=== PATIENT | male | born 1960 | race Caucasian/White ===

== ENCOUNTER 2023-11-06 09:48 | Outpatient (CLI) | payer BC, SELFPAY ==
[2023-11-06 13:31] LABS: Hematocrit 43.8 % (42.0-52.0); Hemoglobin 14.9 g/dL (14.0-18.0); Mean Corpuscular Hemoglobin 32.7 pg (26-34); Mean Corpuscular Volume 96.1 fl (80-100); Mean Platelet Volume 11.8 fl (7.4-10.4); Platelet Count Result 188 k/mm3 (150-375); Red Blood Count 4.56 M/mm3 (4.6-6.20); White Blood Count 6.9 K/mm3 (4.5-10.0)
[2023-11-06 14:31] LABS: Alanine Aminotransferase 42 U/L (6-50); Albumin Level 4.4 g/dL (3.5-5.1); Alkaline Phosphatase 77 U/L (38-126); Anion Gap 7 mmol/L (4-12); Aspartate Amino Transferase 43 U/L (17-59); Bilirubin,Total 0.7 mg/dL (0.2-1.3); Blood Urea Nitrogen 19 mg/dL (9-20); Carbon Dioxide 29 mmol/L (22-30); Chloride 98 mmol/L (98-107); Cholesterol 131 mg/dL (0-200); Estimated Glomerular Filt Rate > 60; Glucose 119 mg/dL (65-110); HDL Direct 47 mg/dL; Potassium 4.5 mmol/L (3.4-5.0); Sodium 134 mmol/L (137-145); Triglycerides 61 mg/dL (<150)
[2023-11-06 14:42] LABS: LDL Cholesterol Direct 63 mg/dL
[2023-11-10 12:59] LABS: Vitamin D 1,25 (OH)2 Total 29 pg/mL (18-72); Vitamin D2 1,25 (OH)2 <8 pg/mL; Vitamin D3 1,25 (OH)2 29 pg/mL
== END 2023-11-06 09:49 | disposition home or self-care (01) ==
LOC: ANHGOSHLAB 09:49
PROVIDERS: PCP Family Medicine; Visit Provider Family Medicine
DX: E55.9 Vitamin D deficiency, unspecified (principal); E66.9 Obesity, unspecified; I10 Essential (primary) hypertension; Z79.899 Other long term (current) drug therapy
CPT/HCPCS: 36415; 80053; 80061; 82652; 84443; 85027

== ENCOUNTER 2023-11-06 10:12 | Outpatient (CLI) | payer BC, SELFPAY ==
--- NOTE | ~2023-11-06 | XR_ITS ---
XR ankle LT min 3V Ordering provider: Stacia Lemos DO History: . No recent injury pain anterior and medial side, sx 28 yr ago . Comparison: None. FINDINGS: BONES: No acute fracture or dislocation. Postoperative changes in the lower tibia. JOINT SPACES: Narrowing of the ankle joint. SOFT TISSUES: Normal. IMPRESSION: No acute osseous abnormality left ankle. Postoperative changes in the distal tibia. Severe narrowing of the ankle joint. Reviewed, dictated and finalized at location A.
== END 2023-11-06 10:13 | disposition home or self-care (01) ==
PROVIDERS: PCP Family Medicine; Visit Provider Family Medicine
DX: M19.072 Primary osteoarthritis, left ankle and foot (principal); M25.872 Other specified joint disorders, left ankle and foot
CPT/HCPCS: 73610

== ENCOUNTER 2024-03-13 09:33 | Outpatient (CLI) | payer BC, SELFPAY ==
--- OUTSIDE RECORDS SUMMARY | 2024-03-13 10:02 | XMS_ITS | Clinical Summary ---
Author Organization [facility] Address [address] [address] Phone Care Team Providers Care Mdm Developer Name Role Phone Feng Lynn MD Primary Care Provide r Loli Finn NP Unavailable [phone] Chay Lerma MD Unavailable [phone] Allergies No known active allergies Medications atorvastatin (LIPITOR) 10 mg tablet TAKE ONE TABLET BY MOUTH EVERY DAY 90 tablet 3 11/08/2022 Active lisinopriL (PRINIVIL,ZESTRI L) 30 mg tablet Take 1 tablet (30 mg total) by mouth daily 90 tablet 06/19/2023 Active Active Problems Problem Noted Date Diagnosed Date Encounter for screening colonoscopy 12/07/2020 Overview (12/07/2020): Added automatically from request for surgery [id number] Risk for coronary artery dis ease between 10% and 20% in next 10 years 07/25/2019 Overview (07/25/2019): The 10-year ASCVD risk score (Theo SARAH Jr., et al., 2013) is: 16.6% Values used to calculate the score: Age: 58 years Sex: Male Is Non- : No Diabetic: No Tobacco smoker: No Systolic Blood Pressure: 181 mmHg Is BP treated: Yes HDL Cholesterol: 45 mg/dL Total Cholesterol: 201 mg/dL Transitional cell carcinoma, bladder 12/30/2018 Hypertension 06/28/2013 Overview (05/18/2016): HYPERTENSION NOS Resolved Problems Problem Noted Date Diagnosed Date Resolved Date Gross hematuria 12/03/2018 07/25/2019 Overview (12/16/2018): Work-up by Urology pending Plan for urine cytology, CT Urogram and Cystoscopy Vitamin D deficiency 06/28/2013 018 Overview (05/17/2016): VITAMIN D DEFICIENCY NOS Adiposity 06/28/2013 11/13/2017 Overview (05/19/2016): OBESITY NOS Immunizations Name Administration Dates Next Due Influenza, Quadrivalent, Spl it, Preservative Free, Intramuscular 01/12/2020 Influenza, Trivalent, Preser vative Free, Intramuscular 10/29/2014 Influenza, Unspecified 11/12/2020(Deferr ed: Patient Refused),07/15/2019(Deferred: Patient Refused) Pfizer SARS-CoV-2 Monovalent Vaccination (12+ Yrs) PURPLE 05/01/2020,04/10/2020 Tdap 06/23/2020 ZOSTER Recombinant 06/23/2020,01/12/2020 Surgical History Surgery Date Site/Laterality Comments ANKLE SURGERY Left TRANSURETHRAL RESECTION OF BLADDER TUMOR 12/24/2018 FRACTURE SURGERY ankle surgery 20 years ago BLADDER SURGERY over last 2 years - cancer Medical History Medical History Date Comments Adiposity Obesity Vitamin D deficiency 06/28/2013 VITAMIN D D EFICIENCY NOS Hematuria Bladder tumor Depression Gross hematuria 12/03/2018 Work-up by Urolo gy pending Plan for urine cytology, CT Urogram and Cystoscopy Cancer (CMS/HCC) (HCC) Bladder Cancer Hypertension taking medication now Sleep apnea Family History Medical History Relation Name Comments Kidney failure Father Renal failure ; Arthritis Mother Pam Woods Other Mother Pam Woods Alive and well; Cancer Sister Yadira Woods Relation Name Status Comments Father Mother Pam Woods Alive Sister Yadira Woods Social History Tobacco Use Types Packs/Day Years Used Date Smoking Tobacco: Former Cigarettes Cigars Smokeless Tobacco: Never Tobacco Cessation:Ready to Q uit: Yes; Counseling Given: Yes Comments:smokes 1 cigar Alcohol Use Standard Drinks/Week Comments Yes 8 (1 standard drink = 0.6 oz pure alcohol) depends on the events of the week AUDIT-C Answer Date Recorded Q1: How often do you have a drink containing alc ohol? 2-4 times a month 12/22/2020 Q2: How many drinks containi ng alcohol do you have on a typical day when you are drinking? 5 or 6 12/22/2020 Q3: How often do you have si x or more drinks on one occasion? Weekly 12/22/2020 PHQ-2 Answer Date Recorded PHQ-2 Total Score (If total score is 3 or more points, staff should administer the PHQ-9) 0 10/04/2021 Sex and Gender Information Value Date Recorded Sex Assigned at Not on file Legal Sex Male 6:58 PM CUSTOMER ADVOCATE Gender Identity Male 12/23/2020 10:47 AM CUSTOMER ADVOCATE Sexual Orientation Straight 12/23/2020 10 :46 AM CUSTOMER ADVOCATE Obstetrics History Last Filed Vital Signs Vital Sign Reading Time Taken Comments Blood Pressure 175/116 10/04/2021 1:16 PM CDT Pulse 80 10/04/2021 1:16 PM CDT Temperature 36.6 ??C (97.9 ??F) 06/27/2021 8:33 AM CD T Respiratory Rate 15 12/22/2020 11:50 AM CUSTOMER ADVOCATE Oxygen Saturation 100% 12/22/2020 11:50 AM CUSTOMER ADVOCATE Inhaled Oxygen Concentration - - Weight 134.7 kg (297 lb) 10/04/2021 1:16 PM CDT Height 182.9 cm (6') 10/04/2021 1:16 PM CDT Body Mass Index 40.28 10/04/2021 1:16 PM CDT Plan of Treatment Health Maintenance Due Date Last Done Comments Hepatitis B Screening 1978 Depression Screening 10/04/2022 10/04/2021, 03/22/2021, 06/23/2020, Additional history exists Regular Well Visit/Exam 18-64 10/04/2022 10/04/2021, 06/23/2020, 03/04/2019, Additional history exists Prostate Cancer Screening-PSA 10/07/2023 10/06/2021, 06/23/2020, 12/02/2018 Covid-19 Vaccine ( season) 2023 06/15/2021, 05/01/2020, 04/10/2020 Influenza Vaccine (#1) 2023 01/12/2020, 2014 Colon Cancer Screening-Colonoscopy 12/22/2025 12/22/2020 DTaP/Tdap/Td Vaccine (2 - Td or Tdap) 06/23/2030 06/23/2020 Hepatitis C Screening Completed 06/23/2020 Zoster Vaccine Completed 06/23/2020, 01/12/2020 Colon Cancer Screening-CT Colonography Discontinued 12/22/2020 Colon Cancer Screening-DNA Stool Discontinued 12/22/2020 Colon Cancer Screening-FIT Discontinued 12/22/2020 Colon Cancer Screening-Sigmoidoscopy Discontinued 12/22/2020 Pneumococcal vaccine <65 Aged Out No longer eligible based on patient's age to complete this topic Procedures Procedure Name Priority Date/Time Associated Diagnosis Comments PSA SCREEN Routine 10/06/2021 10:29 AM CDT Annual physical exam COLONOSCOPY 12/22/2020 10:49 AM CUSTOMER ADVOCATE HEPATITIS C ANTIBODY Routine 06/23/2020 9:14 AM CDT Need for hepatitis C screening test from Last 3 Months or Most Recently Relevant to Health Maintenance Results * PSA screen (10/06/2021 10:29 AM CDT) PSA-Total 0.31 <=5.40 ng/mL [facility] Comment: Interpretive Data ?AGE ? SEX ?REFERENCE INTERVAL 0 minutes-150 years ?Female ?None 0 minutes-49 years ? Male ?None ? 50-59 years ? Male ?0-3.90 ? 60-69 years ? Male ?0-5.40 ? 70-79 years ? Male ?0-6.20 ? 80-150 years ?Male ?0-6.20 The Dylon PSA Total assay procedure was used. Results from different manufacturers or methods may not be comparable. Serial testing should be performed using the same method. Current interpretive data last revised 21. Blood 10/06/2021 10:2 9 AM CDT 10/06/2021 12:51 PM CDT us Feng Lynn MD LAB BLOOD ORDERABLES Final Result [facility] [id number] [facility] Department of Laboratories [place] [id number] * COLONOSCOPY (12/22/2020 10:49 AM CUSTOMER ADVOCATE) Anatomical Region Laterality Modality Other Narrative Procedure Note Kendrick Jack MD - 12/22/2020 10:49 AM CST [facility] Endoscopy Lab Patient Name: Louis Woods Procedure Date: 12/22/2020 10:49AM Date of : 1960 Admit Type: Outpatient Age: 60 Gender: Male Note Status: Finalized Attending MD: Kendrick Jack M.D. Procedure Date: 12/22/2020 Procedure: Colonoscopy Indications: Screening for colorectal malignant neoplasm, Thisis the patient's first colonoscopy Providers: Kendrick Jack M.D., Jaswant Camacho CRNA (Anesthesia Staff), Hemalatha Mart RN Referring MD: Feng Lynn M.D. Medicines: Monitored Anesthesia Care Complications: No immediate complications. Estimated Blood Loss: Estimated blood loss: none. Procedure: Pre-Anesthesia Assessment: - Airway Examination: normal oropharyngeal airwayand neck mobility. - Respiratory Examination: clear to auscultation. - ASA Grade Assessment: III - A patient with severe systemic disease. - After reviewing the risks and benefits, thepatient was deemed in satisfactory condition to undergo the procedure. - The risks and benefits of the procedure and the sedation options and risks were discussed with the patient. All questions were answered and informed consent was obtained. After I obtained informed consent, the scope was passed under direct vision. Throughout theprocedure, the patient's blood pressure, pulse, and oxygen saturations were monitored continuously. The scopewas passed under direct vision. The Colonoscope was introduced through the anus and advanced to the the cecum, identified by the appendiceal orifice, ileocecal valve and palpation. The colonoscopy was performed with ease. The patient tolerated the procedure well. The quality of the bowelpreparation was fair. The quality of the bowel preparation was evaluated using the BBPS (Nicholls Bowel Preparation Scale) with scores of: Right Colon = 2 (minoramount of residual staining, small fragments of stooland/or opaque liquid, but mucosa seen well), TransverseColon = 2 (minor amount of residual staining, small fragments of stool and/or opaque liquid, but mucosa seen well) and Left Colon = 2 (minor amount of residual staining, small fragments of stool and/or opaque liquid, but mucosa seen well). The totalBBPS score equals 6. The quality of the bowelpreparation was fair. The bowel preparation used was GoLYTELYvia split dose instruction. Bowel prep was administered using a split dose. Findings: The perianal and digital rectal examinations were normal. Two sessile polyps were found in the descending colon. The polypswere 3 to 4 mm in size. These polyps were removed with a cold biopsyforceps. Resection and retrieval were complete. Estimated blood loss: none. A few medium-mouthed diverticula were found in the ascending colon. The retroflexed view of the distal rectum and anal verge was normaland showed no anal or rectal abnormalities. Impression: - Preparation of the colon was fair. - Preparation of the colon was fair. - Two 3 to 4 mm polyps in the descending colon, removed with a cold biopsy forceps. Resected and retrieved. - Diverticulosis in the ascending colon. - The distal rectum and anal verge are normal on retroflexion view. Recommendation: - Discharge patient to home (ambulatory). - Await pathology results. - Repeat colonoscopy in 5 years for surveillance. Procedure Code(s): --- Professional --- 23738, Colonoscopy, flexible; with biopsy, singleor multiple Diagnosis Code(s): --- Professional --- Z12.11, Encounter for screening for malignantneoplasm of colon K63.5, Polyp of colon K57.30, Diverticulosis of large intestine without perforation or abscess without bleeding CPT copyright 2019 [employer]. All rights reserved. The codes documented in this report are preliminary and upon eye dropper assembler reviewmay be revised to meet current compliance requirements. Electronically signed by Kendrick Jack MD Kendrick Jack M.D. 12/22/2020 11:21:34 AM Number of Addenda: 0 Note Initiated On: 12/22/2020 10:49 AM us Kendrick Jack MD ENDOSCOPY PROCEDURES Final Resul t * Hepatitis C antibody (06/23/2020 9:14 AM CDT) Hep C Ab Nonreactive Nonreactive [facility] Comment: Interpretive Data Nonreactive: Antibodies to HCV not detected. Does NOT exclude the possibility of recent exposure to HCV. Equivocal: Equivocal for HCV antibodies. Supplemental molecular testing will be automatically performed to determine infection status in accordance with current CDC screening recommendations. ?? Reactive: Positive for HCV antibodies. ??This may represent current or past HCV infection. Supplemental molecular testing will be automatically performed to determine ??current infection status in accordance with current CDC screening recommendations. Interpretive data was last revised on 2019. Blood specimen (specimen) 06/23/2020 9:14 AM CDT 06/23/2020 12:17 PM CDT Feng Lynn MD LAB MICROBIOLOGY - [facility] ORDERABLES Final Result [facility] [id number] Department [place] [address] from Last 3 Months or Most Recently Relevant to Health Maintenance Insurance [employer] [facility] [employer] Address: [address] [place] [address] [place] Care Teams Mdm Developer Relationship Specialty [place] [address] [address] [facility] [address] [place] [address] PCP - General Family Medicine 11/13/17 Loli Finn TREE WRAPPER [id number] [address] [facility] [address] [place] [address] Nurse Practitioner Urology 12/16/18 [place] [id number] [address] [facility] [address] [place] [address] Consulting Physician Urology 04/05/22
--- OUTSIDE RECORDS SUMMARY | 2024-03-13 10:02 | XMS_ITS ---
Author Organization [facility] Address [address] [facility] [address] [place] [address] Phone Care Team Providers Care Grocery Store Courtesy Clerk Name Role Phone Feng Lynn MD Primary Care Provide r Loli Finn NP Unavailable Chay Lerma MD Unavailable [phone] Active Problems Problem Noted Date Diagnosed Date Encounter for screening colonoscopy 12/07/2020 Overview (12/07/2020): Added automatically from request for surgery [id number] Risk for coronary artery dis ease between [...] 12/30/2018 Hypertension 06/28/2013 Overview (05/18/2016): HYPERTENSION NOS Current Oncology Plans No current plan information found. Past Plans No past plan information found. Radiation Treatments * No radiation treatments are documented for this patient in [facility]. Treatments may have been administered in another system. Lifetime Dose Tracking * Chemical Lifetime Dose Automatic Entry Manual Entr y Fluoro Time 1.63 minutes 1.63 minutes 0 minutes Air kerma at the reference point (Ka,r) 56.3 mGy 5 6.3 mGy 0 mGy Resolved Problems Problem Noted Date Diagnosed Date Resolved Date Gross hematuria 12/03/2018 07/25/2019 Overview (12/16/2018): Work-up by Urology pending Plan for urine cytology, CT Urogram and Cystoscopy Vitamin D deficiency 06/28/2013 018 Overview (05/17/2016): VITAMIN D DEFICIENCY NOS Adiposity 06/28/2013 11/13/2017 Overview (05/19/2016): OBESITY NOS
--- OUTSIDE RECORDS SUMMARY | 2024-03-13 10:02 | XMS_ITS | Referral Summary ---
Author Organization [facility] Address [address] [address] Phone Care Team Providers Care Nurse Anesthesia Program Director Name Role Phone Feng Lynn MD Primary Care Provide r Loli Finn NP Unavailable [phone] Chay Lerma MD Unavailable [phone] Allergies No known active allergies Medications atorvastatin (LIPITOR) 10 mg tablet TAKE ONE TABLET BY MOUTH EVERY DAY 90 tablet 3 11/08/2022 Active lisinopriL (PRINIVIL,ZESTRI L) 30 mg tablet Take 1 tablet (30 mg total) by mouth daily 90 tablet 06/19/2023 Active Active Problems Problem Noted Date Diagnosed Date Encounter for screening colonoscopy 12/07/2020 Overview (12/07/2020): Added automatically from request for surgery [id number] Risk for coronary artery dis ease between [...] PURPLE 05/01/2020,04/10/2020 Tdap 06/23/2020 ZOSTER Recombinant 06/23/2020,01/12/2020 Social History Tobacco Use Types Packs/Day Years [...] on file Legal Sex Male 6:58 PM PUBLIC RECORDS RESEARCHER Gender Identity Male 12/23/2020 10:47 AM PUBLIC RECORDS RESEARCHER Sexual Orientation Straight 12/23/2020 10 :46 AM PUBLIC RECORDS RESEARCHER Last Filed Vital Signs Vital Sign Reading Time Taken Comments Blood Pressure 175/116 10/04/2021 1:16 PM CDT Pulse 80 10/04/2021 1:16 PM CDT Temperature 36.6 ??C (97.9 ??F) 06/27/2021 8:33 AM CD T Respiratory Rate 15 12/22/2020 11:50 AM PUBLIC RECORDS RESEARCHER Oxygen Saturation 100% 12/22/2020 11:50 AM PUBLIC RECORDS RESEARCHER Inhaled Oxygen Concentration - - Weight 134.7 kg (297 lb) 10/04/2021 1:16 PM CDT Height 182.9 cm (6') 10/04/2021 1:16 PM CDT Body Mass Index 40.28 10/04/2021 1:16 PM CDT Plan of Treatment Not on file Procedures Procedure Name Priority Date/Time Associated Diagnosis Comments PSA SCREEN Routine 10/06/2021 10:29 AM CDT Annual physical exam COLONOSCOPY 12/22/2020 10:49 AM PUBLIC RECORDS RESEARCHER HEPATITIS C ANTIBODY Routine 06/23/2020 9:14 AM [...] MD LAB BLOOD ORDERABLES Final Result [facility] [id number] [facility] Department [place] [address] * COLONOSCOPY (12/22/2020 10:49 AM PUBLIC RECORDS RESEARCHER) Anatomical Region Laterality Modality Other Narrative Procedure Note Kenrdick Jack MD - 12/22/2020 10:49 AM CST [facility] Endoscopy Lab Patient Name: Louis Woods Procedure [...] bowel preparation was evaluated using the BBPS (Hayes Bowel Preparation Scale) with scores of: Right [...] for surveillance. Procedure Code(s): --- Professional --- [id number], Colonoscopy, flexible; with biopsy, singleor multiple Diagnosis Code(s): --- Professional --- Z12.11, Encounter for screening for malignantneoplasm of colon K63.5, Polyp of colon K57.30, Diverticulosis of large intestine without perforation or abscess without bleeding CPT copyright 2019 [employer]. All rights reserved. The codes documented in this report are preliminary and upon tipple supervisor reviewmay be revised to meet current compliance [...] CDT Feng Lynn MD LAB MICROBIOLOGY - [place] [id number] [address] Department [place] [address] from Last 3 Months or Most Recently Relevant to Health Maintenance Insurance [employer] [employer] Address: [facility] [id number] [place] [phone] [place] Care Teams Nurse Anesthesia Program Director Relationship Specialty [place] [address] [phone] PCP - General Family Medicine 11/13/17 Loli Finn, DITCH DIGGER [id number] [address] [facility] [address], [place] [phone] Nurse Practitioner Urology 12/16/18 [place] [id number] [address] [facility] [address] [place] [address] Consulting Physician Urology 04/05/22
[2024-03-13 16:27] LABS: Hemoglobin 13.7 g/dL (14.0-18.0); Mean Corpuscular HGB Conc 33.4 g/dl (32-36); Mean Corpuscular Hemoglobin 31.6 pg (26-34); Mean Corpuscular Volume 94.5 fl (80-100); Mean Platelet Volume 11.5 fl (7.4-10.4); Platelet Count Result 212 k/mm3 (150-375); Red Blood Count 4.34 M/mm3 (4.6-6.20); Red Cell Distribution Width 12.4 % (11.5-14.5); White Blood Count 7.5 K/mm3 (4.5-10.0)
[2024-03-13 16:45] LABS: Alanine Aminotransferase 39 U/L (6-50); Albumin Level 4.1 g/dL (3.5-5.1); Alkaline Phosphatase 111 U/L (38-126); Anion Gap 9 mmol/L (4-12); Aspartate Amino Transferase 33 U/L (17-59); Bilirubin,Total 0.5 mg/dL (0.2-1.3); Blood Urea Nitrogen 28 mg/dL (9-20); Calcium 9.8 mg/dL (8.4-10.2); Carbon Dioxide 27 mmol/L (22-30); Chloride 104 mmol/L (98-107); Cholesterol 131 mg/dL (0-200); Estimated Glomerular Filt Rate > 60; Glucose 129 mg/dL (65-110); HDL Direct 45 mg/dL; Sodium 140 mmol/L (137-145); Triglycerides 76 mg/dL (<150)
[2024-03-13 16:56] LABS: LDL Cholesterol Direct 70 mg/dL
[2024-03-13 17:20] LABS: Prostate Specific Antigen 0.2 ng/mL (< OR = 4.0)
[2024-03-13 20:19] LABS: Hemoglobin A1C 6.2 % (<5.7)
== END 2024-03-13 09:34 | disposition home or self-care (01) ==
LOC: ANHGOSHLAB 09:34
PROVIDERS: PCP Family Medicine; Visit Provider Family Medicine
DX: R73.9 Hyperglycemia, unspecified (principal); I10 Essential (primary) hypertension; E66.9 Obesity, unspecified; Z79.899 Other long term (current) drug therapy; E55.9 Vitamin D deficiency, unspecified; Z12.5 Encounter for screening for malignant neoplasm of prostate
CPT/HCPCS: 36415; 80053; 80061; 82652; 83036; 84153; 84443; 85027; G0103